=== PATIENT | male | born 1985 | race Caucasian/White ===

== ENCOUNTER 2022-04-17 13:29 | Emergency (ER) | payer OTHER ==
[~2022-04-17] VITALS: Ht 182.9 cm; Wt 80.3 kg
[2022-04-17] MEDS ORDERED: LEVETIRACETAM (500MG) 1,000 MG in IV NS 0.9% 100 ML IV STA (13:44)
[2022-04-17] MEDS ORDERED: LORAZEPAM INJ 2 MG/ML VIAL ONE (13:44)
--- NOTE | 2022-04-17 13:46 | NUR ---
IV LINE STARTED BLOOD DRAWN AND SENT TP LAB.
--- NOTE | 2022-04-17 13:49 | NUR ---
PT HAVING ACTIVE SEIZURE. DR VELASQUEZ AT BEDSIDE, ATIVAN 2MG GIVEN PER ERMD VERBAL ORDER.
[2022-04-17 13:52] LABS: EOSINOPHILS % (AUTO) 0.2 % (0.0-6.0); HEMATOCRIT 42 % (39-51); HEMOGLOBIN 13.3 g/dL (13.5-17.5); LYMPHOCYTES # (AUTO) 1.2 K/uL (0.8-4.8); LYMPHOCYTES % (AUTO) 25.8 % (20.0-44.0); MEAN CORPUSCULAR HGB CONC 32 g/dl (31.0-36.0); MEAN CORPUSCULAR VOLUME 102 fL (80-96); MONOCYTES # (AUTO) 0.5 K/uL (0.1-1.30); MONOCYTES % (AUTO) 11.6 % (2.0-12.0); NEUTROPHILS # (AUTO) 2.7 K/uL (1.8-8.9); NEUTROPHILS % (AUTO) 61.4 % (43.0-81.0); PLATELET COUNT (AUTO) 175 K/uL (150-450); RED BLOOD CELL COUNT(AUTO) 4.09 MIL/uL (4.5-6.0); WHITE BLOOD COUNT (AUTO) 4.5 K/uL (4.3-11.0)
--- NOTE | 2022-04-17 13:56 | NUR ---
TAKEN TO CT FOR HEAD CT SCAN.
[2022-04-17] MEDS ORDERED: LORAZEPAM INJ 2 MG/ML VIAL IV ONE (14:00)
--- NOTE | 2022-04-17 14:03 | NUR ---
RETURNED FOR CT SCAN. ON MONITOR. WILL CONTINUE TO MONITOR.
[2022-04-17 14:11] LABS: ALANINE AMINOTRANSFERASE 41 U/L (12-78); ALBUMIN 4.7 g/dL (3.4-5.0); ALCOHOL, BLOOD 81 mg/dL (0-0); ALKALINE PHOSPHATASE 87 U/L (46-116); ASPARTATE AMINOTRANSFERASE 63 U/L (15-37); BILIRUBIN,DIRECT 0.2 mg/dL (0.0-0.2); BILIRUBIN,TOTAL 0.7 mg/dL (0.2-1.0); CALCIUM, SERUM 10.5 mg/dL (8.5-10.1); CARBON DIOXIDE 17 mmol/L (21-32); CHLORIDE 103 mmol/L (98-107); CREATININE 1.3 mg/dL (0.6-1.3); GLUCOSE 99 mg/dL (74-106); POTASSIUM 5.7 mmol/L (3.5-5.1); SODIUM SERUM 146 mmol/L (136-145); TOTAL PROTEIN, SERUM 9.2 g/dL (6.4-8.2); UREA NITROGEN, BLOOD 13 mg/dL (7-18)
[2022-04-17 14:13] LABS: ACETAMINOPHEN < 10 ug/ml (10-30)
--- NOTE | 2022-04-17 14:30 | NUR ---
MOVE SHEET SUBMITTED.
[2022-04-17 15:05] LABS: BILIRUBIN,URINE NEGATIVE (NEGATIVE); COLOR,URINE YELLOW (YELLOW); LEUKOCYTE ESTERASE ,URINE NEGATIVE (NEGATIVE); NITRITE, URINE NEGATIVE (NEGATIVE); PROTEIN,URINE 2+ mg/dl (NEGATIVE); UGLUCOSE NEGATIVE (NEGATIVE); UROBILINOGEN,URINE 0.2 EU/dL (0.2)
--- NOTE | 2022-04-17 15:07 | NUR ---
HOSPITALIST SPEAKING WITH DR. VELASQUEZ.
[2022-04-17 15:26] LABS: MAGNESIUM 2.2 mg/dL (1.8-2.4); PHOSPHORUS 4.4 mg/dL (2.5-4.9)
--- NOTE | 2022-04-17 15:30 | NUR ---
tech at bedside for ekg
--- NOTE | 2022-04-17 15:40 | NUR ---
COVID SWABBED, SPECIMEN COLLECTED SENT TO LAB.
[2022-04-17 16:05] LABS: BACTERIA,URINE 1+ /HPF (None Seen); SPERM,URINE Few /HPF (None Seen)
[2022-04-17] MEDS ORDERED: ACETAMINOPHEN 325 MG TABLET PO PRN (17:00)
[2022-04-17] MEDS ORDERED: IV NS 0.9% 1,000 ML IV PRN (17:00)
[2022-04-17] MEDS ORDERED: ONDANSETRON HCL/PF 4 MG/2 ML VIAL IVP PRN (17:00)
[2022-04-17] MEDS ORDERED: Z GUARD REMEDY 4 OZ OINT TP PRN (17:00)
--- NOTE | 2022-04-17 19:22 | NUR ---
REPORT GIVEN TO FI[employer] P[employer] LINES SUPERVISOR NURSE VERNON MILLER FOR NADJA.
--- NOTE | 2022-04-17 19:35 | NUR ---
PATIENT AMBULATES TO RESTROOM WITH STEADY GAIT, TOLERATING FLUIDS PO WELL. VSS. NO ACUTE DISTRESS NOTED. WILL CONTINUE TO MONITOR.
--- NOTE | 2022-04-17 19:39 | NUR ---
Patient does not wish to proceed with medical care recommended by Dr. Martinez. Patient given information related to possible complications, up to and including , which could occur as a result of leaving the hospital at this time. Patient verbalizes understanding of risks involved due to leaving against medical advice. Patient has signed AMA form. IV removed. Catheter intact and site benign. Pressure and 4x4 applied to site. No bleeding noted.
[2022-04-17 19:42] VITALS: BP 146/79
[2022-04-17] MEDS ORDERED: ENOXAPARIN SODIUM 40 MG/0.4 ML DISP.SYRIN SQ SCH (20:00)
[2022-04-18] MEDS ORDERED: LEVETIRACETAM (500MG) 500 MG in IV NS 0.9% 100 ML IV SCH (02:00)
== END 2022-04-17 19:38 | disposition left against medical advice (07) ==
LOC: EDBD 13:31 → ER 13:31
DX: G40.909 Epilepsy, unspecified, not intractable, without status epilepticus (principal); Z59.00 Homelessness unspecified; R00.0 Tachycardia, unspecified; D53.9 Nutritional anemia, unspecified; E87.5 Hyperkalemia; F15.10 Other stimulant abuse, uncomplicated; Y90.4 Blood alcohol level of 80-99 mg/100 ml; F12.10 Cannabis abuse, uncomplicated; G92.9 Unspecified toxic encephalopathy; E87.0 Hyperosmolality and hypernatremia; N17.0 Acute kidney failure with tubular necrosis; F10.129 Alcohol abuse with intoxication, unspecified; Z20.822 Contact with and (suspected) exposure to COVID-19; Z53.29 Procedure and treatment not carried out because of patient's decision for other reasons
CPT/HCPCS: 99291; 96365; 96375; 93005; 70450; 85025; 80048; 80076; 83735; 84100; 81001; 36415; 87081; 87426; 80143; 80320; 80307; J2060; J7030; J1953; C9803; G0480